=== PATIENT | male | born 1950 | race Caucasian/White ===

== ENCOUNTER 2021-10-02 11:54 | Emergency (ER) | payer OTHER, MEDICARE ==
[~2021-10-02] VITALS: Wt 90.7 kg
== END 2021-10-02 12:55 | disposition short-term general hospital (02) ==
LOC: ED 11:54
DX: T14.90XA Injury, unspecified, initial encounter (principal); V89.2XXA Person injured in unspecified motor-vehicle accident, traffic, initial encounter; Y93.89 Activity, other specified; Y92.89 Other specified places as the place of occurrence of the external cause; Y99.8 Other external cause status